=== PATIENT | female | born 1980 | race Caucasian/White ===

== ENCOUNTER 2016-05-30 12:00 | Outpatient (CLI) | payer BC ==
--- NOTE | 2016-05-30 12:43 | DIAGNOSTIC IMAGING REPORT ---
PROCEDURE: XR LUMBAR SPINE 2 OR 3 VIEWS INDICATION: LBP TECHNIQUE: Three views. COMPARISON: Lumbar spine and sacral films dated 02/19/2016 FINDINGS: Osseous structures and disc spaces are normal. No evidence of an acute process or fracture. Previous laminectomy at L5. IUD and right upper quadrant surgical clips. IMPRESSION: 1. Negative lumbar spine.
--- NOTE | 2016-05-30 17:40 | DIAGNOSTIC IMAGING REPORT ---
PROCEDURE: MR LUMBAR SPINE W/WO CONTRAST INDICATION: FALL; LOW BACK PAIN L RADICULOPATHY TECHNIQUE: Noncontrast T1, T2, and STIR sagittal images. T1 and T2 axial images. COMPARISON: None. FINDINGS: L1-2: Normal. L2-3: Normal. L3-4: Normal. L4-5: Normal. L5-S1: There is a large herniated nucleus pulposus at L5-S1 centrally and on the left. The larger fragment has migrated 1 cm caudally. There is a displacement of the thecal sac and nerve root. IMPRESSION: 1. Large herniated nucleus pulposus L5-S1 on the left with caudal migration.
== END 2016-05-30 23:00 ==
LOC: MRI SRH 12:00 → XR SRH 12:00
DX: M51.27 Other intervertebral disc displacement, lumbosacral region (principal)